=== PATIENT | female | born 1990 | race Caucasian/White ===

== ENCOUNTER 2023-11-23 11:04 | Inpatient (IN) ==
[2023-11-23 11:49] LABS: Basophils # (auto) 0.02 K/uL (0.00-0.20); Basophils % (auto) 0.2 %; Hematocrit (blood only) 39.7 % (37.0-47.0); Hemoglobin 12.8 g/dl (12.0-16.0); Immature Granulocytes # (auto) 0.04 K/uL (0.01-0.20); Immature Granulocytes % (auto) 0.4 %; Lymphocytes # (auto) 0.54 K/uL (1.20-3.40); Lymphocytes % (auto) 6.1 %; Mean Corpuscular Hemoglobin 27.7 pg (25.0-34.0); Mean Corpuscular Hgb Conc 32.2 g/dL (32.0-36.0); Mean Corpuscular Volume 85.9 fL (80.0-100.0); Mean Platelet Volume 11.1 fL (9.4-12.4); Monocytes # (auto) 0.71 K/uL (0.11-0.59); Neutrophils % (auto) 85.3 %; Platelet Count 197 K/uL (130-400); RDW Coefficient of Variation 13.2 % (11.5-14.5); RDW Standard Deviation 41.3 fL (36.4-46.3); Red Blood Count 4.62 M/uL (4.20-5.40); White Blood Count 8.91 K/ul (4.8-10.8)
[2023-11-23 12:00] LABS: Alanine Aminotransferase 12 U/L (7-52); Albumin Globulin Ratio 1.2 (0.9-2); Albumin Level 3.7 gm/dl (3.4-5.0); Alkaline Phosphatase 106 U/L (34-104); Anion Gap 6 (3-11); Aspartate Aminotransferase 12 U/L (13-39); BUN Creatinine Ratio 13.3 (10-20); Bilirubin,Total 1.9 mg/dl (0.2-1.0); Blood Urea Nitrogen 10 mg/dl (6-23); Calcium 9.2 mg/dl (8.6-10.3); Carbon Dioxide 25 mmol/L (21-32); Chloride 105 mmol/L (98-107); Est GFR (African American) 123.1 ml/min; Est GFR (Non-African American) 106.2 ml/min; Globulin 3.2 gm/dl (2.5-4.0); Glucose 107 mg/dl (70-99(Fasting)); Potassium 3.3 mmol/L (3.5-5.1); Sodium 136 mmol/L (136-145); Total Protein 6.9 gm/dl (6.0-8.3)
--- NOTE | 2023-11-23 12:05 | Emergency Department Note ---
Impression & Plan Bacteremia, Pyelonephritis, Lyme disease ED Provider Note NAME: LEODAN IQBAL AGE: 33 SEX: F : 1990 ARRIVES VIA: Walk-In INFORMANT: Patient, ED PROVIDER(S): Veda Longoria MD CHIEF COMPLAINT: Positive blood cultures HPI: This is a 33-year-old female presenting for fever, back pain, positive blood cultures. Patient was seen yesterday with complaints of fever, back pain and nausea. Patient had diagnosis of pyelonephritis and Lyme. Patient was called back today for positive blood cultures growing E. coli. Patient notes worsening of her symptoms, more migraine type symptoms, worsening fatigue. Continue fever at home as well. Last took antibiotics yesterday morning and then 1 dose in the afternoon yesterday. ROS: See above HPI for pertinent positives & negatives. A total of 10 systems reviewed and were otherwise negative. PHYSICAL EXAMINATION: General: resting comfortably in no acute distress Head: Normocephalic and atraumatic Eyes: Normal inspection, extraocular muscles intact Ear, nose, throat: Normal external exam Neck: Normal range of motion Respiratory: lungs clear to auscultation bilaterally Cardiovascular: Regular rate/rhythm, no murmur GI: soft, nontender, no guarding or rebound Extremities: nontender, moves all extremities Neuro: The patient awake and alert, appropriately conversive, no focal deficits, symmetric faces Skin: Warm, dry, and intact MEDICAL DECISION MAKING: This is 33-year-old female presenting for fever and back pain with positive blood cultures. Will initiate ceftriaxone due to gram negative bacilli in blood. -Overall patient is somewhat tachycardic but not hypotensive. Her blood work is reviewed showing a leukocytosis, down from yesterday. Otherwise stable electrolytes. -Patient still has signs of UTI on urinalysis. -Will admit for further workup of her bacteremia, UTI/pyonephritis -Patient care discussed with Dr. Maier. Differential diagnosis: Sepsis, bacteremia, pyonephritis, ER treatment provided: See below Diagnostics interpreted by me: ECG: None Cardiac Monitoring: An order was placed for continuous cardiac monitoring. The monitor shows a rate of 102 with sinus rhythm. Laboratory studies: As stated above and show below. Imaging studies: See below. Past Med/Surg History Problem List (Updated 11/23/23 @ 19:30 by Veda Longoria MD) Hypokalemia Lyme disease (Acute) Bacteremia (Acute) Acute Lyme disease (Acute) Pyelonephritis (Acute) Loss of eyelashes Encounter for anatomic survey Encounter for supervision of normal in multigravida Medical History Varicella vaccination Insertion of Nexplanon History of abdominal pain Encounter for initial prescription of contraceptives Encounter for gynecological examination Migraine with aura Surgical History H/O adenoidectomy Family History Grandfather (Maternal) Colorectal cancer Heart disease Sister Endometriosis Denies family history of Ovarian cancer Prostate cancer Breast cancer Uterine cancer Social History Smoking Status: Never smoker Tobacco Type: E-cigarettes / Vaping Second Hand Exposure: No; Do You Dip or Chew Tobacco: No; Hx Alcohol Use: Yes Hx Substance Use: No Preferred Language: Greek Communication Ability: Effective Visual Impairment: No Limitations Hearing Ability: Normal Tube Backer Required: No Beliefs That Will Affect Care: None marital status: Single marital status details: Shola (28) [phone] Current Living Situation: Other Current Living Situation Comment: roommate current occupational status: employed current occupation: [employer] Other Information That Helps Us Care for You: No Feels Safe at Home: Yes Assistive Devices: Glasses Allergies Allergies Allergy/AdvReac Type Severity Reaction Status Date / Time hydrocodone [From Vicodin] AdvReac Intermediate Vomiting Verified 11/23/23 13:18 Home Meds Home Medications Medication Instructions Recorded Confirmed etonogestrel 68 mg subdermal 68 mg subdermal DIRECTED 11/22/23 11/23/23 implant (Nexplanon) doxycycline hyclate 100 mg capsule 0 mg PO BID 11/23/23 11/23/23 Previous Rx's Medication Instructions Recorded cefdinir 300 mg capsule 300 mg PO BID 10 days #20 caps 11/22/23 oxycodone 5 mg tablet 5 mg PO Q4H PRN pain #15 tabs 11/22/23 Results & Data (ED) Vital Signs Vital Signs - 24 hr 11/23/23 11:17 11/23/23 11:44 Temperature 37.3 C Temperature Source Temporal Artery Scan Pulse Rate 102 H 93 H Respiratory Rate 18 Respiratory Effort / Characteristics Non-Labored Respiratory Depth Normal Respiratory Pattern Regular Blood Pressure 102/70 Blood Pressure Mean 80 Pulse Oximetry 100 Oxygen Delivery Method Room Air Sepsis Recent Fever Within 48 Hours No Sepsis New/Unexplained Change in Mental Status N/A Sepsis Action Taken by Nursing No Action Required Laboratory Data 11/23/23 11:11/23/23 11:26 Lab Results 11/23/23 11/23/23 Range/Units 11: 12:08 WBC 8.91 (4.8-10.8) K/ul RBC 4.62 (4.20-5.40) M/uL Hgb 12.8 (12.0-16.0) g/dl Hct 39.7 (37.0-47.0) % MCV 85.9 (80.0-100.0) fL MCH 27.7 (25.0-34.0) pg MCHC 32.2 (32.0-36.0) g/dL RDW Std Deviation 41.3 (36.4-46.3) fL RDW Coeff of Porfirio 13.2 (11.5-14.5) % Plt Count 197 (130-400) K/uL MPV 11.1 (9.4-12.4) fL Immature Gran % (Auto) 0.4 % Neut % (Auto) 85.3 % Lymph % (Auto) 6.1 % Carlisle % (Auto) 8.0 % Eos % (Auto) 0.0 % Baso % (Auto) 0.2 % Neut # (Auto) 7.60 H (1.40-6.50) K/uL Lymph # (Auto) 0.54 L (1.20-3.40) K/uL Carlisle # (Auto) 0.71 H (0.11-0.59) K/uL Eos # (Auto) 0.00 (0.00-0.50) K/uL Baso # (Auto) 0.02 (0.00-0.20) K/uL Immature Gran # (Auto) 0.04 (0.01-0.20) K/uL Sodium 136 (136-145) mmol/L Potassium 3.3 L (3.5-5.1) mmol/L Chloride 105 (98-107) mmol/L Carbon Dioxide 25 (21-32) mmol/L Anion Gap 6 (3-11) BUN 10 (6-23) mg/dl Creatinine 0.75 (0.6-1.2) mg/dl Est Cr Clr Drug Dosing Not Reportable Est GFR ( Amer) 123.1 ml/min Est GFR (Non-Af Amer) 106.2 ml/min BUN/Creatinine Ratio 13.3 (10-20) Glucose 107 H (70-99(Fasting)) mg/dl Calcium 9.2 (8.6-10.3) mg/dl Magnesium 1.8 (1.7-2.4) mg/dl Total Bilirubin 1.9 H (0.2-1.0) mg/dl AST 12 L (13-39) U/L ALT 12 (7-52) U/L Alkaline Phosphatase 106 H (34-104) U/L Total Protein 6.9 (6.0-8.3) gm/dl Albumin 3.7 (3.4-5.0) gm/dl Globulin 3.2 (2.5-4.0) gm/dl Albumin/Globulin Ratio 1.2 (0.9-2) Urine Color Dark Yellow Urine Appearance Clear (Clear) Urine pH 6.5 (4.5-7.5) Ur Specific Clyde 1.018 (1.000-1.030) Urine Protein 2+ H (Negative) Urine Glucose (UA) Negative (Negative) Urine Ketones 2+ H (Negative) Urine Blood 1+ H (Negative) Urine Nitrite Negative (Negative) Urine Bilirubin Negative (Negative) Urine Urobilinogen Positive H (Negative) Ur Leukocyte Esterase 1+ H (Negative) Urine WBC (Auto) 21-50 H (0-5) /hpf Urine RBC (Auto) 11-20 H (0-2) /hpf U Hyaline Cast (Auto) 0-2 (0-2) /lpf U Epithel Cells (Auto) 3-5 H (0-2) /hpf Urine Bacteria (Auto) None Seen (None Seen) Administered Medications Sodium Chloride (Nss) 1,000 mls @ 125 mls/hr IV .Q8H FRANKLIN Stop: 12/23/23 17:07 Last Admin: 11/23/23 18:02 Dose: 125 mls/hr Documented By: CMV Discontinued Medications Ceftriaxone Sodium (Rocephin) 2,000 mg in 50 mls @ 100 mls/hr IV NOW STA Stop: 11/23/23 12:27 Last Infusion: 11/23/23 12:49 Dose: Infused Documented By: Admin: 11/23/23 12:19 Dose: 100 mls/hr Documented By: CARMEN Acetaminophen (Ofirmev) 1,000 mg in 100 mls @ 400 mls/hr IV NOW STA Stop: 11/23/23 12:13 Last Infusion: 11/23/23 12:36 Dose: Infused Documented By: Admin: 11/23/23 12:21 Dose: 400 mls/hr Documented By: CARMEN Sodium Chloride (Nss) 1,000 mls @ 999 mls/hr IV .Q1H1M ONE Stop: 11/23/23 12:59 Last Infusion: 11/23/23 13:23 Dose: Infused Documented By: Admin: 11/23/23 12:18 Dose: 999 mls/hr Documented By: CARMEN Ioversol (Optiray 320 100ml) 94 ml IV ONCE ONE Stop: 11/23/23 14:28 Last Admin: 11/23/23 14:27 Dose: 94 ml Documented By: NICK Ketorolac Tromethamine (Ketorolac 30 Mg/Ml Vial) 30 mg IV NOW STA Stop: 11/23/23 14:13 Last Admin: 11/23/23 14:37 Dose: 30 mg Documented By: CARMEN Potassium Chloride (Potassium Chloride Crtab 20 Meq Tabcr) 40 meq PO NOW STA Stop: 11/23/23 17:09 Last Admin: 11/23/23 18:02 Dose: 40 meq Documented By: TERESO Promethazine HCl (Promethazine 12.5 Mg/50.5 Ml Nss) Confirm Administered Dose 12.5 mg IV .STK-MED ONE Stop: 11/23/23 14:34 Last Admin: 11/23/23 14:41 Dose: 12.5 mg Documented By: CARMEN Discharge Plan Visit Data Chief Complaint: Referred by Doctor Stated Complaint: BACTERIAL INFECTION ED Provider: Veda Longoria Discharge Problem: Bacteremia, Pyelonephritis, Lyme disease Patient Disposition: Admitted As Inpatient Discharge Instructions Interventions: ED Discharge Assessment Last Done: 11/23/23 17:53
[2023-11-23] MEDS: SODIUM CHLORIDE 0.9% 1,000 ML IV ONE (12:18)
[2023-11-23] MEDS: cefTRIAXone SODIUM 2,000 MG/50 ML BAG IV STA (12:19)
[2023-11-23] MEDS: ACETAMINOPHEN 1,000 MG/100 ML VIAL IV STA (12:21)
[2023-11-23 12:24] LABS: Appearance Urine Clear (Clear); Bacteria Urine Automated None Seen (None Seen); Bilirubin Urine Negative (Negative); Blood Urine 1+ (Negative); Cast Urine Automated 0-2 /lpf (0-2); Color Urine Dark Yellow; Glucose Urine UA Negative (Negative); Ketones Urine 2+ (Negative); Leukocyte Esterase Urine 1+ (Negative); Nitrite Urine Negative (Negative); Protein Urine 2+ (Negative); Specific Gravity Urine 1.018 (1.000-1.030); Urobilinogen Urine Positive (Negative); WBC Urine Automated 21-50 /hpf (0-5); pH Urine 6.5 (4.5-7.5)
--- NOTE | 2023-11-23 13:04 | History & Physical Report ---
Date of Service November 23, 2023 Assessment & Plan (1) Pyelonephritis: (2) Bacteremia: (3) Lyme disease: (4) Hypokalemia: Plan: 33-year-old female with history of GERD, irritable bowel syndrome, migraine, presenting with positive blood cultures. Pyelonephritis Right renal abscess Bacteremia, E. coli Does not meet criteria for sepsis at this point Urine culture November 22, 2023: Gram-negative bacilli, E. coli per serology testing, no resistant genes Blood cultures November 22, 2023: Negative bacilli IV ceftriaxone 2 g daily IV NSS 125 cc/h As needed Tylenol, tramadol, oxycodone for pain Repeat blood cultures ordered for tomorrow CT abdomen and pelvis with contrast ordered to rule out kidney stone, abscess: Positive small renal abscess on the right Will consult urology and ID Equivocal Lyme disease results Western blot Lyme ordered Anaplasmosis DNA pending Babesia DNA pending On IV ceftriaxone Hypokalemia Potassium 3.1, magnesium pending Potassium 40 mg ordered Monitor and replete accordingly History of GERD, IBS, migraine Not on medications DVT prophylaxis Lovenox subcutaneous daily [facility] [place] [facility] Anticipate discharge to home medically stable History of Present Illness Chief Complaint: Positive blood cultures Primary Care Provider: Santiago Witt MD 33-year-old female with history of GERD, irritable bowel syndrome, migraine, presenting with positive blood cultures. Patient reports having the following symptoms over the weekend: Fever of 102/chills, back pain, headache, nausea, polyuria, muscle aches. She presented to the ER yesterday and was diagnosed to have possible pyelonephritis and Lyme disease. She was discharged on p.o. cefdinir and p.o. doxycycline. Patient was called back to the ER today as her urine culture and blood cultures is positive for gram-negative bacilli, preliminary serologic testing reveals E. coli, no resistant genes. At the ER, patient received afebrile, slightly tachycardic at low 100s, WBC improved from 13, current 8.9. She was started IV ceftriaxone 2 g at the ED. On exam, patient seen resting in bed, sleeping but easily awakened. States she is having severe frontal headache reminiscent of her migraine att acks. Still having some back pain, dysuria, no hematuria. No other symptoms Allergies Allergy/AdvReac Type Severity Reaction Status Date / Time hydrocodone [From Vicodin] AdvReac Intermediate Vomiting Verified 11/23/23 13:18 Home Medications Medication Instructions Recorded Confirmed Type cefdinir 300 mg capsule 300 mg PO BID 10 days #20 caps 11/22/23 11/23/23 Rx etonogestrel 68 mg subdermal 68 mg subdermal DIRECTED 11/22/23 11/23/23 History implant (Nexplanon) oxycodone 5 mg tablet 5 mg PO Q4H PRN pain #15 tabs 11/22/23 11/23/23 Rx doxycycline hyclate 100 mg capsule 0 mg PO BID 11/23/23 11/23/23 History Past Med/Surg History Problem List (Updated 11/23/23 @ 19:30 by Veda Longoria MD) Hypokalemia Lyme disease (Acute) Bacteremia (Acute) Acute Lyme disease (Acute) Pyelonephritis (Acute) Loss of eyelashes Encounter for anatomic survey Encounter for supervision of normal in multigravida Medical History Varicella vaccination Insertion of Nexplanon History of abdominal pain Encounter for initial prescription of contraceptives Encounter for gynecological examination Migraine with aura Surgical History H/O adenoidectomy Family History Grandfather (Maternal) Colorectal cancer Heart disease Sister Endometriosis Denies family history of Ovarian cancer Prostate cancer Breast cancer Uterine cancer Social History Smoking Status: Never smoker Tobacco Type: E-cigarettes / Vaping Second Hand Exposure: No; Do You Dip or Chew Tobacco: No; Hx Alcohol Use: Yes Hx Substance Use: No Preferred Language: Italian Communication Ability: Effective Visual Impairment: No Limitations Hearing Ability: Normal House Cleaner Required: No Beliefs That Will Affect Care: None marital status: Single marital status details: Shola (28) [phone] Current Living Situation: Other Current Living Situation Comment: roommate 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 occupational status: 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 Other Information That Helps Us Care for You: No Feels Safe at Home: Yes Assistive Devices: Glasses Review of Systems Review of Systems: all noted and negative except for above Physical Exam Physical Exam: General- oriented x 3, not in distress, speaks in sentences with no effort or accessory muscle use Head- atraumatic Eyes- PERRL, EOMI, anicteric ENT- oropharynx clear Neck- supple, no JVD, no adenopathy, no thyromegaly; carotids +2/2, no bruits appreciated Lungs- clear to auscultation bilaterally, no rales/wheezes Heart- normal rate, regular rhythm; no murmur, no gallop, no rub appreciated Abdomen- normal bowel sounds, nondistended, soft, nontender, no masses or hepatosplenomegaly Positive mild CVA tenderness Extremities- no pretibial edema, no calf tenderness; peripheral pulses intact Neuro- alert, oriented x 3; CN 2-12 grossly intact; motor 5/5 bilaterally;sensation 100% on all extremities; no other gross focal neurologic deficits Skin- warm & dry Results & Data Results & Data Vital Signs (Past 12 Hours) Vital Signs Temp Pulse Resp BP Pulse Ox O2 Del Method 11/23/23 11:44 93 H 11/23/23 11:17 37.3 C 102 H 18 102/70 100 Room Air all noted and reviewed including below
[2023-11-23] MEDS: OPTIRAY 320 100ml IV ONE (14:27)
[2023-11-23] MEDS ORDERED: PROMETHAZINE HCL 12.5 MG in SODIUM CHLORIDE 0.9% 50 ML IV PRN (14:29)
[2023-11-23] MEDS: KETOROLAC 30 MG/ML VIAL IV STA (14:37)
[2023-11-23] MEDS: PROMETHAZINE 12.5 MG/50.5 ML NSS IV ONE (14:41)
--- NOTE | 2023-11-23 15:05 | CT Scan Report ---
CT abd pelvis IV con only CLINICAL HISTORY: pyelonephritis, r/o absces vs stone TECHNIQUE: Helical axial images of the abdomen and pelvis were obtained and displayed. Automated dose lowering techniques and/or adjustment according to patient size were utilized for this exam. This e xam was performed with intravenous contrast. CT DOSE: 553.08 mGy.cm COMPARISON: Comparison is made to renal ultrasound 11/22/2023 FINDINGS: Lower chest: No acute abnormality. Liver: Unremarkable. No focal lesions are seen. Gallbladder and biliary tree: There is mild pericholecystic fluid, likely reactive. No intra- or extr ahepatic biliary ductal dilation. Pancreas: Unremarkable, no focal lesions. Spleen: Unremarkable. Adrenals: Unremarkable. Kidneys and ureters: Wedge-shaped hypodensities are seen throughout the right kidney compatible with pyelonephritis. A focal hypoenhancing wedge-shaped density in the left superior pole likely also repr esents pyelonephritis. There are subcentimeter hypodensities in the right kidney inferior pole which may represent developing abscess. Thickening and enhancement is seen in the right greater than left u reter. Bladder: Bladder is underdistended but thickened in appearance. Reproductive organs: Unremarkable. Bowel: Unremarkable. Lymph nodes Retroperitoneal: Unremarkable. Pelvic: Unremarkable. Mesenteric: Unremarkable. Peritoneum: Normal. Vessels: Unremarkable. Abdominal wall: Unremarkable. Bones: Unremarkable. IMPRESSION: Findings are compatible with pyelonephritis with possible developing tiny renal abscesses in the righ t kidney inferior pole. Surrounding fat stranding is seen in pericholecystic fluid is likely reactive . No nonobstructive nephrolithiasis is seen. ACT 112: Negative or not required by law. Electronically signed by: Domenic Zhou M.D. 11/23/2023 3:03 PM
[2023-11-23 17:29] LABS: Magnesium 1.8 mg/dl (1.7-2.4)
[2023-11-23] MEDS: POTASSIUM CHLORIDE CRTAB 20 MEQ TABCR PO STA (18:02)
[2023-11-23] MEDS: SODIUM CHLORIDE 0.9% 1,000 ML IV SCH (18:02)
[2023-11-23] MEDS: ACETAMINOPHEN 325 MG TAB PO PRN (19:46)
--- NOTE | 2023-11-23 22:25 | Urology Consultation ---
<Statement entered by Boogie Tirado MD - 11/24/23 07:37> I have discussed Ms. Aldana's case with Yuniel Plunkett PA-C and agree with the above documentation. Agree with broad-spectrum antibiotics, narrowing coverage as culture data becomes available. If she does not improve or worsens clinically, consider reimaging to evaluate for formalization of any renal abscess which could subsequently require percutaneous drainage. -Boogie Tirado MD. Date of Consultation November 23, 2023 Assessment & Plan (1) Pyelonephritis: The patient has been admitted on the hospital service. Concerning the patient's treatment of Lyme disease this will be deferred to the primary service From a urologic perspective we recommend the following: Patient has been initiated on antibiotics in form of Rocephin. Appropriate cultures have been sent. Would recommend continuing antibiotics and tailoring them based on culture results as well as her clinical response Recommend hydration with IV fluids Recommend following serial labs It appears on imaging that the patient may have the development of a renal abscess. If the patient fails to respond in a favorable manner to the above noted treatment plan (continuing fevers, worsening flank pain/CVA tenderness, development of leukocytosis) consideration should be given to reimaging the patient's kidney to see if there is worsening of possible abscess. If there is noted to be worsening of patient's possible renal abscess measures to address the abscess will need to be undertaken and will be dependent on findings on repeat imaging At the present time the patient is normotensive without leukocytosis. She does have a slight tachycardia with a heart rate in the 90s but she is nontoxic- appearing. Additional recommendations be forthcoming based on her clinical course as it unfolds History of Present Illness Reason for Consultation: Pyelonephritis with developing kidney abscess Attending Physician: Elias Maier MD History of Present Illness This is a 33-year-old female who has had approximately 3 days of fevers, chills, and back pain. The patient also has had some nausea and vomiting along with some headache and myalgias. In addition, she reports generalized abdominal pain. She specifically denies any hematuria or dysuria. She denies any prior history of kidney stones and notes that she does not frequently get urinary tract infections. Patient presented to the emergency department on 11/22/2023 where she was diagnosed with pyelonephritis as well as Lyme disease. She was discharged on oral cefdinir and oral doxycycline. It is noteworthy to mention that on that date the patient did have labs were white blood cell count was elevated at 13.5. Hemoglobin and hematocrit as well as the platelet count were normal. Chemistry profile showed sodium and potassium as well as the BUN and creatinine were normal. A renal ultrasound during this emergency department visit showed no hydronephrosis. There was a 5 mm echogenic focus in the right kidney without shadowingjust interpreting radiologist could not exclude a kidney stone on the study.The patient did have a urine culture sent that day that has thus far grown gram-negative bacilli. She has also had 1 out of 2 blood cultures grow also gram-negative bacilli. Because of patient's culture results she was instructed to come to the emergency department for intravenous antibiotics. Since admission to the hospital patient has had labs and imaging which I independent reviewed. A CT scan of the abdomen pelvis showed the patient had a wedge-shaped hypodensities seen throughout the right kidney which was felt to be compatible with pyelonephritis. She also had a focal hypoenhancing wedge-shaped density in the left superior pole that was felt to represent pyelonephritis. There are also some subcentimeter hypodensities in the right kidney along the inferior pole which were felt to potentially represent developing abscesses. No kidney stones were noted on the study. The bladder did appear thickened in appearance. Labs included CBC her white blood cell count, hemoglobin, hematocrit, and platelet count were normal. Chemistry profile showed sodium was normal. Her potassium was 3.3. BUN and creatinine were both within the normal range. Urinalysis did show 1+ leukocyte Estrace and was negative for nitrites. There is pyuria with 21-50 white blood cells per high-power field and no bacteria. At the time of my interview the patient was resting comfortably in bed and she was no distress. Allergies Allergy/AdvReac Type Severity Reaction Status Date / Time hydrocodone [From Vicodin] AdvReac Intermediate Vomiting Verified 11/23/23 13:18 Home Medications Medication Instructions Recorded Confirmed Type cefdinir 300 mg capsule 300 mg PO BID 10 days #20 caps 11/22/23 11/23/23 Rx etonogestrel 68 mg subdermal 68 mg subdermal DIRECTED 11/22/23 11/23/23 History implant (Nexplanon) oxycodone 5 mg tablet 5 mg PO Q4H PRN pain #15 tabs 11/22/23 11/23/23 Rx doxycycline hyclate 100 mg capsule 0 mg PO BID 11/23/23 11/23/23 History Patient History Medical History Varicella vaccination Insertion of Nexplanon History of abdominal pain Encounter for initial prescription of contraceptives Encounter for gynecological examination Migraine with aura Surgical History H/O adenoidectomy Family History Grandfather (Maternal) Colorectal cancer Heart disease Sister Endometriosis Denies family history of Ovarian cancer Prostate cancer Breast cancer Uterine cancer Social History Smoking Status: Never smoker Tobacco Type: E-cigarettes / Vaping Second Hand Exposure: No; Do You Dip or Chew Tobacco: No; Hx Alcohol Use: Yes Hx Substance Use: No Preferred Language: Czech Communication Ability: Effective Visual Impairment: No Limitations Hearing Ability: Normal Dairy Farm Supervisor Required: No Beliefs That Will Affect Care: None marital status: Single marital status details: Shola (28) [phone] Current Living Situation: Other Current Living Situation Comment: roommate current occupational status: employed current occupation: [employer] Other Information That Helps Us Care for You: No Feels Safe at Home: Yes Assistive Devices: Glasses Review of Systems Review of Systems: All systems reviewed & are unremarkable except as noted in HPI & below Physical Exam Constitutional: WD/WN, vitals as above Eyes: Wears glasses ENMT: Ears: no hearing impairment and no external ear abnormality Mouth: no oropharynx abnormality Neck: trachea midline Respiratory: normal respiratory effort; no respiratory distress and no labored breathing Cardiovascular: Rate/Rhythm: regular rate and regular rhythm Gastrointestinal (Abdomen): Abdomen is soft, nonrigid, nondistended. There is some generalized pain with palpation in the lower abdomen. Musculoskeletal: No calf tenderness, feet are warm and well-perfused. Pedal pulses are palpable Skin: no rashes Neurologic: moves all extremities Psychiatric: A+Ox3, euthymic affect Genitourinary: CVA tenderness noted with percussion on the right, not on the left Results & Data Vital Signs (Past 12 Hours) Vital Signs Temp Pulse Pulse Pulse Resp BP BP 11/23/23 19:45 38.7 C H 93 H 18 11/23/23 17:36 36.9 C 74 16 11/23/23 15:53 85 22 111/73 11/23/23 11:44 93 H 11/23/23 11:17 37.3 C 102 H 18 102/70 BP Pulse Ox O2 Del Method 11/23/23 19:45 112/78 96 Room Air 11/23/23 17:36 107/73 97 Room Air 11/23/23 15:53 96 Room Air 11/23/23 11:44 11/23/23 11:17 100 Room Air PG Care Time/CCT Total # of Minutes Spent Total Time Spent with Patient: Total time spent is greater than 50% in coordination of care (as documented) at patient's floor/unit and/or counseling patient: Coding Level of Care Code 69952 IN/OBS CONSULT LVL 5,80M Diagnoses Pyelonephritis N12
[2023-11-23] MEDS: ENOXAPARIN INJ 40 MG/0.4 ML SYR SQ SCH (22:27)
[2023-11-24 06:37] LABS: Basophils # (auto) 0.02 K/uL (0.00-0.20); Basophils % (auto) 0.4 %; Eosinophils # (auto) 0.01 K/uL (0.00-0.50); Eosinophils % (auto) 0.2 %; Hematocrit (blood only) 33.9 % (37.0-47.0); Hemoglobin 10.8 g/dl (12.0-16.0); Immature Granulocytes # (auto) 0.03 K/uL (0.01-0.20); Immature Granulocytes % (auto) 0.5 %; Lymphocytes # (auto) 0.67 K/uL (1.20-3.40); Lymphocytes % (auto) 11.8 %; Mean Corpuscular Hemoglobin 27.5 pg (25.0-34.0); Mean Corpuscular Hgb Conc 31.9 g/dL (32.0-36.0); Mean Corpuscular Volume 86.3 fL (80.0-100.0); Mean Platelet Volume 11.5 fL (9.4-12.4); Monocytes # (auto) 0.54 K/uL (0.11-0.59); Monocytes % (auto) 9.5 %; Neutrophils % (auto) 77.6 %; Platelet Count 174 K/uL (130-400); RDW Coefficient of Variation 13.4 % (11.5-14.5); Red Blood Count 3.93 M/uL (4.20-5.40); White Blood Count 5.67 K/ul (4.8-10.8)
[2023-11-24 07:13] LABS: Calcium 8.4 mg/dl (8.6-10.3); Creatinine Clr Calc Pharmacy 101.8 ml/min; Est GFR (African American) 134.4 ml/min; Magnesium 1.6 mg/dl (1.7-2.4); Potassium 3.6 mmol/L (3.5-5.1)
[2023-11-24] MEDS: traMADol HCL 50 MG TABLET PO PRN (07:28)
[2023-11-24] MEDS: PROMETHAZINE HCL 12.5 MG in SODIUM CHLORIDE 0.9% 50 ML IV PRN (08:07)
--- NOTE | 2023-11-24 08:59 | Urology Progress Note ---
Date of Service November 24, 2023 Assessment & Plan (1) Pyelonephritis: (2) Bacteremia: Plan: 33 yo/F admitted for pyelonephritis and E. coli bacteremia. CT imaging with findings consistent of bilateral pyelonephritis; subcentimeter hypodensities in the right kidney inferior pole which may represent developing abscess. Afebrile overnight, hemodynamically stable Labs reviewedcreatinine 0.69, no leukocytosis Urine and blood cultures 11/21 with E. coli Repeat blood cultures 11/22 and 11/23 are pending Continue broad spectrum antibiotics, narrow per sensitivity data when available ID consult pending Can repeat imaging if she clinically deteriorates to reassess for abscess Continue supportive care Can arrange outpatient follow-up with PCP or urology will sign off, please contact our service with any additional questions or concerns Admission and Anticipated Discharge Date Admission Date: November 23, 2023 Subjective Patient seen and examined at bedside this morning She is resting in bed, no apparent distress Denies fevers overnight Reports mild flank pain, right greater than left Voiding spontaneously Review of Systems Constitutional: as per Subjective / HPI Genitourinary: as per Subjective / HPI Physical Exam Constitutional: well developed and well nourished; no acute distress Respiratory: normal respiratory effort; no respiratory distress and no labored breathing Gastrointestinal (Abdomen): Inspection/Auscultation: abdomen normal to inspection Musculoskeletal: Head/Neck/Chest: normocephalic Neurologic: moves all extremities and awake Psychiatric: Orientation: alert and oriented x 3 Results & Data Vital Signs (Past 12 Hours) Vital Signs Temp Pulse Resp BP Pulse Ox O2 Del Method 11/24/23 07:16 36.7 C 85 16 105/68 95 Room Air 11/23/23 22:36 37.1 C PG Care Time/CCT Total # of Minutes Spent Total Time Spent with Patient: Total time spent is greater than 50% in coordination of care (as documented) at patient's floor/unit and/or counseling patient: Coding Level of Care Code 30741 SUB INP/OBS CARE 06/04MIN Diagnoses Pyelonephritis N12 Bacteremia R78.81
[2023-11-24] MEDS: cefTRIAXone SODIUM 2,000 MG in DEXTROSE 5% 50 ML IV SCH (12:47)
--- NOTE | 2023-11-24 13:17 | Hospitalist Progress Note ---
Date of Service November 24, 2023 Assessment & Plan (1) Pyelonephritis: (2) Bacteremia: (3) Lyme disease: (4) Renal abscess, right: (5) Electrolyte abnormality: (6) Antibiotic-associated diarrhea: Plan Patient still moderately ill with significant flank pain. Continue antibiotics/Rocephin for both E. coli bacteremia and Lyme disease C. difficile is negative, trial of Imodium and probiotic for her antibiotic associated diarrhea Added ibuprofen as needed for her flank pain in addition to Tylenol and tramadol Replace magnesium Urology note reviewed Anticipate if surveillance cultures remain no growth could consider transitioning to oral antibiotics and outpatient follow-up. Mother on FaceTime while at the bedside with patient. Admission and Anticipated Discharge Date Admission Date: November 23, 2023 Subjective Patient still with fair amount of flank pain but medication seems to help. Continues to have fair amounts of loose stools Physical Exam Physical Exam: Constitutional: Alert HEENT: Mucous membranes moist. Lungs: Clear to auscultation, decreased, no wheezes rales or rhonchi CV: S1-S2, regular Abdomen: Soft, right flank pain nondistended Extremities: No significant edema Neuro: No focal deficits Psych: Cooperative, normal mood Results & Data Results & Data Vital Signs (Past 12 Hours) Vital Signs Temp Pulse Resp BP Pulse Ox O2 Del Method 11/24/23 07:16 36.7 C 85 16 105/68 95 Room Air Diagnostic Findings Reviewed imaging, laboratory and diagnostic studies. Pertinent findings as below. WBCs 5.6 Surveillance cultures no growth to date C. difficile negative Magnesium 1.6
[2023-11-24] MEDS: POTASSIUM CHLORIDE CRTAB 20 MEQ TABCR PO ONE (13:26)
[2023-11-24] MEDS: LOPERAMIDE HCL 2 MG CAP PO PRN (13:26)
[2023-11-24] MEDS: MAGNESIUM SULFATE / D5W 1 GM/100 ML BAG IV SCH (13:30)
--- NOTE | 2023-11-24 15:53 | Infectious Disease Consult ---
Date of Service November 24, 2023 Telehealth Information I performed this visit using a real-time telehealth connection between my location and the patients location ([facility]). After connecting through interactive tele-video, patient was identified by name and date of and/or wristband check.Patient (or authorized healthcare customer field representative) was informed that this was a telemedicine visit and it was being conducted confidentially over secure lines. My office door was closed and no one else was present in the room with me.Patient (or authorized healthcare customer field representative) provided consent to proceed with the visit, expressed an understanding of privacy and security of the telemedicine visit, and gave permission to have a hospital customer field representative in the room in order to assist with the visit and to conduct portions of the visit, as needed. I informed the patient (or authorized healthcare customer field representative) that I reviewed their record and presented the opportunity for them to ask any questions regarding the visit today. The patient agreed to participate. Assessment & Plan (1) Renal abscess, right: Plan: Recommend ciprofloxacin for 2-3 weeks with re-imaging to determine resolution of the renal abscess (2) Bacteremia: Plan: Recommend treating with ciprofloxacin if no CI (3) Pyelonephritis: Plan: Recommend treating with ciprofloxacin for a total of 14 -21 days (4) E. coli bacteremia: Plan: Recommend treating for 2-3 weeks with ciprofloxacin Plan Recommend switching to ciprofloxacin for 2-3 weeks with re-imaging to determine resolution of her renal abscess, if no contra-indications such as QT prolongation or AAA.Thank you for allowing us to participate in the care of this patient ID will sign off History of Present Illness History of Present Illness 33 y/o F PMHx of GERD, irritable bowel syndrome, migraine, presented with positive blood cultures with E Coli .Imaging revealed renal abscess and pyelonephritis and she is currently on ceftriaxone .No drainage was done Allergies Allergy/AdvReac Type Severity Reaction Status Date / Time hydrocodone [From Vicodin] AdvReac Intermediate Vomiting Verified 11/23/23 13:18 Home Medications Medication Instructions Recorded Confirmed Type cefdinir 300 mg capsule 300 mg PO BID 10 days #20 caps 11/22/23 11/23/23 Rx etonogestrel 68 mg subdermal 68 mg subdermal DIRECTED 11/22/23 11/23/23 History implant (Nexplanon) oxycodone 5 mg tablet 5 mg PO Q4H PRN pain #15 tabs 11/22/23 11/23/23 Rx doxycycline hyclate 100 mg capsule 0 mg PO BID 11/23/23 11/23/23 History Patient History Medical History Varicella vaccination Insertion of Nexplanon History of abdominal pain Encounter for initial prescription of contraceptives Encounter for gynecological examination Migraine with aura Surgical History H/O adenoidectomy Family History Grandfather (Maternal) Colorectal cancer Heart disease Sister Endometriosis Denies family history of Ovarian cancer Prostate cancer Breast cancer Uterine cancer Social History Smoking Status: Never smoker Tobacco Type: E-cigarettes / Vaping Second Hand Exposure: No; Do You Dip or Chew Tobacco: No; Hx Alcohol Use: Yes Hx Substance Use: No Preferred Language: Vincentian Communication Ability: Effective Visual Impairment: No Limitations Hearing Ability: Normal Oral Health Therapist Required: No Beliefs That Will Affect Care: None marital status: Single marital status details: Shola (28) [phone] Current Living Situation: Other Current Living Situation Comment: roommate current occupational status: employed current occupation: [employer] Other Information That Helps Us Care for You: No Feels Safe at Home: Yes Assistive Devices: None Review of Systems denies abdominal pain Physical Exam Patient awake alert oriented Results & Data Vital Signs (Past 12 Hours) Vital Signs Temp Pulse Resp BP Pulse Ox O2 Del Method 11/24/23 13:55 37.8 C H 91 H 16 112/76 95 Room Air 11/24/23 07:16 36.7 C 85 16 105/68 95 Room Air Laboratory Results E coli RX M.I.C. --- --------- Amox/Clav S <=8/4 Ampicillin S <=8 Amp/Sul S <=8/4 Cefazolin S <=2 Cefepime S <=2 Ceftriaxone S <=1 Ciprofloxacin S <=0.25 Ertapenem S <=0.5 Gentamicin S <=4 Levofloxacin S <=0.5 Meropenem S <=1 Nitrofurantoin S <=32 Tobramycin S <=4 Trimeth/Sulfa S <=2/38 Pip/Tazo S <=16 S = SENSITIVE I = INTERMEDIATE R = RESISTANT Diagnostic Findings IMPRESSION: Findings are compatible with pyelonephritis with possible developing tiny renal abscesses in the right kidney inferior pole. Surrounding fat stranding is seen in pericholecystic fluid is likely reactive. No nonobstructive nephrolithiasis is seen.
[2023-11-24] MEDS: SACCHAROMYCES BOULARDII 250 MG CAP PO SCH (21:16)
[2023-11-24] MEDS: oxyCODONE HCL IR 5 MG TAB (IMMEDIATE RELEASE) PO PRN (21:20)
[2023-11-25] MEDS: IBUPROFEN 600 MG TAB PO PRN (01:07)
[2023-11-25 07:12] LABS: BUN Creatinine Ratio 8.8 (10-20); Calcium 7.9 mg/dl (8.6-10.3); Creatinine Clr Calc Pharmacy 123.2 ml/min; Est GFR (African American) 143.2 ml/min; Est GFR (Non-African American) 123.5 ml/min; Potassium 3.8 mmol/L (3.5-5.1)
--- NOTE | 2023-11-25 11:35 | Electrocardiogram Report ---
Test Reason : Blood Pressure : / mmHG Vent. Rate : 063 BPM Atrial Rate : 063 BPM P-R Int : 122 ms QRS Dur : 086 ms QT Int : 396 ms P-R-T Axes : 039 019 -04 degrees QTc Int : 405 ms Normal sinus rhythm with sinus arrhythmia Otherwise Normal ECG No previous ECGs available Confirmed by Sandor Munroe ([id number]) on 11/25/2023 11:35:24 AM Referred By: REFERRED SELF Confirmed By:Sandor Munroe
[2023-11-25] MEDS ORDERED: CIPROFLOXACIN / D5W 400 MG/200 ML BAG IV SCH (16:00)
--- NOTE | 2023-11-25 16:47 | Hospitalist Progress Note ---
Date of Service November 25, 2023 Assessment & Plan (1) Pyelonephritis: Plan: presented with fever of 102 C with back pain headache nausea and pyuria positive blood culture even prior to admission started on intravenous ceftriaxone for both to cover E. coli bacteremia and possible Lyme disease Patient still moderately ill with significant flank pain. C. difficile is negative, trial of Imodium and probiotic for her antibiotic associated diarrhea Added ibuprofen as needed for her flank pain in addition to Tylenol and tramadol appreciate urology input and recommendation appreciate ID input and recommendation to continue with Cipro for a total of 2 to 3 weeks EKG has been done and does not show any QT prolongation (2) Renal abscess, right: Plan: pyelonephritis with renal abscess appreciate urology input and recommendation will have repeat scan in about 2 to 3 weeks following (3) Bacteremia: Plan: finishing the course of antibiotic (4) Lyme disease: Plan: positive IgM definitive Western blot is pending will start doxycycline from today (5) Electrolyte abnormality: (6) Antibiotic-associated diarrhea: Plan: C. difficile has been negative Admission and Anticipated Discharge Date Admission Date: November 23, 2023 Subjective 11/25/2023 the patient was seen and examined in medical floor in presence of the mother she has been complaining up back pain on either side of the lower back otherwise feeling a little better denies any fever and or chills Review of Systems Review of Systems: all systems reviewed and are unremarkable except as noted below Physical Exam Physical Exam: lying in bed with some discomfort at the back Constitutional: + ill appearing and average body habitus Eyes: PERRL, conjunctivae normal, anicteric sclerae ENMT: external ear and nose normal, oropharynx normal Neck: trachea midline, no thyromegaly Respiratory: no respiratory distress Auscultation: lungs clear to auscultation bilaterally Cardiovascular: Rate/Rhythm: regular rate and regular rhythm; not tachycardic Heart Sounds: normal S1 and normal S2; no murmur Extremities: no edema Gastrointestinal (Abdomen): Inspection/Auscultation: normal bowel sounds; abdomen not distended Percussion/Palpation: abdomen soft; abdomen nontender Musculoskeletal: no acute arthritis involving any of the joints Neurologic: normal touch/pain/proprioception and moves all extremities; no focal motor deficits Psychiatric: A+Ox3, euthymic affect Lymphatic: no cervical or axillary lymphadenopathy Results & Data Results & Data Vital Signs (Past 12 Hours) Vital Signs Temp Pulse Pulse Resp BP Pulse Ox O2 Del Method 11/25/23 14:43 36.6 C 65 14 111/72 92 Room Air 11/25/23 11:30 36.7 C 83 17 100/68 92 Room Air 11/25/23 07:40 36.6 C 75 18 108/66 93 Room Air Laboratory Results [facility] 11/25/23 05:40 Sodium 138 Potassium 3.8 Chloride 109 H Carbon Dioxide 23 BUN 5 L Creatinine 0.57 L Glucose 85 Calcium 7.9 L Medications Administered Current Inpatient Medications Acetaminophen (Acetaminophen 325 Mg Tab) 650 mg PO Q6H PRN PRN Reason: Pain & Pre PT Stop: 12/23/23 19:59 Last Admin: 11/24/23 12:48 Dose: 650 mg Enoxaparin Sodium (Enoxaparin Inj 40 Mg/0.4 Ml Syr) 40 mg SQ Q24H [facility] Stop: 12/23/23 20:59 Last Admin: 11/24/23 21:16 Dose: 40 mg Sodium Chloride (Nss) 1,000 mls @ 125 mls/hr IV .Q8H [facility] Stop: 12/23/23 17:07 Last Admin: 11/25/23 15:01 Dose: 125 mls/hr Promethazine HCl 12.5 mg/ (Sodium Chloride) 50.5 mls @ 204 mls/hr IV Q6H PRN PRN Reason: Nausea And Vomiting Stop: 12/23/23 17:07 Last Infusion: 11/25/23 08:50 Dose: Infused Ciprofloxacin (Cipro / D5w) 400 mg in 200 mls @ 100 mls/hr IV Q8H [facility] Stop: 12/09/23 17:59 Ibuprofen (Ibuprofen 600 Mg Tab) 600 mg PO Q6H PRN PRN Reason: Mild-Mod Pain (Scale 1-6) Stop: 12/24/23 13:14 Last Admin: 11/25/23 15:00 Dose: 600 mg Loperamide HCl (Loperamide Hcl 2 Mg Cap) 2 mg PO Q6H PRN PRN Reason: Diarrhea Stop: 12/24/23 13:13 Last Admin: 11/24/23 13:26 Dose: 2 mg Oxycodone HCl (Oxycodone Hcl Ir 5 Mg Tab (Immediate Release)) 5 mg PO Q4H PRN PRN Reason: Severe Pain (Scale 7, 8, 9,10) Stop: 12/07/23 17:07 Last Admin: 11/24/23 21:20 Dose: 5 mg Saccharomyces Boulardii (Saccharomyces Boulardii 250 Mg Cap) 250 mg PO BID [facility] Stop: 12/24/23 20:59 Last Admin: 11/25/23 09:56 Dose: 250 mg Tramadol HCl (Tramadol Hcl 50 Mg Tablet) 50 mg PO Q4H PRN PRN Reason: MODERATE Pain (4,5,6) & Pre PT Stop: 12/23/23 17:07 Last Admin: 11/24/23 17:53 Dose: 50 mg
[2023-11-25] MEDS: CIPROFLOXACIN / D5W 400 MG/200 ML BAG IV SCH (17:07)
[2023-11-25] MEDS: DOXYCYCLINE HYCLATE 100 MG CAP PO SCH (20:02)
[2023-11-25 23:27] LABS: 18KDIGG Band NON-REACTIVE; 23KDIGG Band NON-REACTIVE; 23KDIGM Band REACTIVE; 28KDIGG Band NON-REACTIVE; 30KDIGG Band NON-REACTIVE; 39KDIGG Band NON-REACTIVE; 39KDIGM Band NON-REACTIVE; 41KDIGG Band REACTIVE; 41KDIGM Band NON-REACTIVE; 45KDIGG Band NON-REACTIVE; 58KDIGG Band NON-REACTIVE; 66KDIGG Band NON-REACTIVE; 93KDIGG Band NON-REACTIVE; Lyme Antibodies, WB IgG NEGATIVE (NEGATIVE); Lyme Antibodies, WB IgM NEGATIVE (NEGATIVE)
[2023-11-26 06:38] LABS: Basophils # (auto) 0.02 K/uL (0.00-0.20); Basophils % (auto) 0.5 %; Eosinophils # (auto) 0.07 K/uL (0.00-0.50); Eosinophils % (auto) 1.8 %; Hematocrit (blood only) 32.8 % (37.0-47.0); Hemoglobin 10.8 g/dl (12.0-16.0); Immature Granulocytes # (auto) 0.04 K/uL (0.01-0.20); Lymphocytes # (auto) 1.13 K/uL (1.20-3.40); Lymphocytes % (auto) 29.4 %; Mean Corpuscular Hgb Conc 32.9 g/dL (32.0-36.0); Mean Platelet Volume 11.1 fL (9.4-12.4); Monocytes # (auto) 0.51 K/uL (0.11-0.59); Monocytes % (auto) 13.3 %; Neutrophils # (auto) 2.07 K/uL (1.40-6.50); Platelet Count 241 K/uL (130-400); RDW Coefficient of Variation 13.6 % (11.5-14.5); RDW Standard Deviation 42.2 fL (36.4-46.3); Red Blood Count 3.86 M/uL (4.20-5.40); White Blood Count 3.84 K/ul (4.8-10.8)
[2023-11-26 07:05] LABS: BUN Creatinine Ratio 9.4 (10-20); Calcium 7.7 mg/dl (8.6-10.3); Creatinine Clr Calc Pharmacy 132.5 ml/min; Est GFR (African American) 146.6 ml/min; Est GFR (Non-African American) 126.5 ml/min; Potassium 3.3 mmol/L (3.5-5.1)
[2023-11-26] MEDS: POTASSIUM CHLORIDE CRTAB 20 MEQ TABCR PO STA (10:22)
[2023-11-26] MEDS: OPTIRAY 320 100ml IV ONE (13:26)
--- NOTE | 2023-11-26 13:39 | Hospitalist Progress Note ---
Date of Service November 26, 2023 Assessment & Plan (1) Pyelonephritis: Plan: presented with fever of 102 C with back pain headache nausea and pyuria positive blood culture even prior to admission started on intravenous ceftriaxone for both to cover E. coli bacteremia and possible Lyme disease Patient still moderately ill with significant flank pain. C. difficile is negative, trial of Imodium and probiotic for her antibiotic associated diarrhea Added ibuprofen as needed for her flank pain in addition to Tylenol and tramadol appreciate urology input and recommendation appreciate ID input and recommendation to continue with Cipro for a total of 2 to 3 weeks EKG has been done and does not show any QT prolongation has been tolerating intravenous Cipro well will have another CAT scan of the abdomen with contrast to evaluate pyelonephritis/renal abscess prior to discharge home this afternoon (2) Renal abscess, right: Plan: pyelonephritis with renal abscess appreciate urology input and recommendation will have repeat scan in about 2 to 3 weeks following (3) Bacteremia: Plan: finishing the course of antibiotic (4) Lyme disease: Plan: positive IgM definitive Western blot is pending will start doxycycline from today no direct evidence of tick bite but Lyme has been positive will finish the 10 days course of antibiotic (5) Electrolyte abnormality: (6) Antibiotic-associated diarrhea: Plan: C. difficile has been negative Admission and Anticipated Discharge Date Admission Date: November 23, 2023 Subjective 11/25/2023 the patient was seen and examined in medical floor in presence of the mother she has been complaining up back pain on either side of the lower back otherwise feeling a little better denies any fever and or chills 11/26/2023 The patient was seen and examined in medical floor She has been feeling a lot better and complains to have some nausea following oral doxycycline denies any back pain and does not have any fever and or chills Review of Systems Review of Systems: all systems reviewed and are unremarkable except as noted below Physical Exam Physical Exam: lying in bed with some discomfort at the back Constitutional: average body habitus; not ill appearing Eyes: PERRL, conjunctivae normal, anicteric sclerae ENMT: external ear and nose normal, oropharynx normal Neck: trachea midline, no thyromegaly Respiratory: no respiratory distress Auscultation: lungs clear to auscultation bilaterally Cardiovascular: Rate/Rhythm: regular rate and regular rhythm; not tachycardic Heart Sounds: normal S1 and normal S2; no murmur Extremities: no edema Gastrointestinal (Abdomen): Inspection/Auscultation: normal bowel sounds; abdomen not distended Percussion/Palpation: abdomen soft; abdomen nontender no tenderness in the renal angles Neurologic: normal touch/pain/proprioception and moves all extremities; no focal motor deficits Psychiatric: A+Ox3, euthymic affect Lymphatic: no cervical or axillary lymphadenopathy Results & Data Results & Data Vital Signs (Past 12 Hours) Vital Signs Temp Pulse Resp BP Pulse Ox O2 Del Method 11/26/23 07:44 37.1 C 62 16 109/72 96 Room Air Laboratory Results Short CBC 11/26/23 Range/Units 05:48 WBC 3.84 L (4.8-10.8) K/ul Hgb 10.8 L (12.0-16.0) g/dl Hct 32.8 L (37.0-47.0) % Plt Count 241 (130-400) K/uL BMP 11/26/23 05:48 Sodium 140 Potassium 3.3 L Chloride 111 H Carbon Dioxide 24 BUN 5 L Creatinine 0.53 L Glucose 98 Calcium 7.7 L Medications Administered Current Inpatient Medications Acetaminophen (Acetaminophen 325 Mg Tab) 650 mg PO Q6H PRN PRN Reason: Pain & Pre PT Stop: 12/23/23 19:59 Last Admin: 11/24/23 12:48 Dose: 650 mg Doxycycline Hyclate (Doxycycline Hyclate 100 Mg Cap) 100 mg PO BID [facility] Stop: 12/05/23 20:59 Last Admin: 11/26/23 07:54 Dose: 100 mg Enoxaparin Sodium (Enoxaparin Inj 40 Mg/0.4 Ml Syr) 40 mg SQ Q24H [facility] Stop: 12/23/23 20:59 Last Admin: 11/25/23 20:03 Dose: Not Given Sodium Chloride (Nss) 1,000 mls @ 125 mls/hr IV .Q8H [facility] Stop: 12/23/23 17:07 Last Admin: 11/26/23 09:50 Dose: 125 mls/hr Promethazine HCl 12.5 mg/ (Sodium Chloride) 50.5 mls @ 204 mls/hr IV Q6H PRN PRN Reason: Nausea And Vomiting Stop: 12/23/23 17:07 Last Infusion: 11/26/23 11:04 Dose: Infused Ciprofloxacin (Cipro / D5w) 400 mg in 200 mls @ 100 mls/hr IV Q8H [facility] Stop: 12/09/23 17:59 Last Infusion: 11/26/23 11:58 Dose: Infused Ibuprofen (Ibuprofen 600 Mg Tab) 600 mg PO Q6H PRN PRN Reason: Mild-Mod Pain (Scale 1-6) Stop: 12/24/23 13:14 Last Admin: 11/26/23 09:37 Dose: 600 mg Loperamide HCl (Loperamide Hcl 2 Mg Cap) 2 mg PO Q6H PRN PRN Reason: Diarrhea Stop: 12/24/23 13:13 Last Admin: 11/24/23 13:26 Dose: 2 mg Oxycodone HCl (Oxycodone Hcl Ir 5 Mg Tab (Immediate Release)) 5 mg PO Q4H PRN PRN Reason: Severe Pain (Scale 7, 8, 9,10) Stop: 12/07/23 17:07 Last Admin: 11/24/23 21:20 Dose: 5 mg Saccharomyces Boulardii (Saccharomyces Boulardii 250 Mg Cap) 250 mg PO BID [facility] Stop: 12/24/23 20:59 Last Admin: 11/26/23 07:54 Dose: 250 mg Tramadol HCl (Tramadol Hcl 50 Mg Tablet) 50 mg PO Q4H PRN PRN Reason: MODERATE Pain (4,5,6) & Pre PT Stop: 12/23/23 17:07 Last Admin: 11/24/23 17:53 Dose: 50 mg
--- NOTE | 2023-11-26 14:16 | CT Scan Report ---
CT SCAN OF THE ABDOMEN AND PELVIS WITH IV CONTRAST CLINICAL HISTORY: Pyelonephritis. Assess for abscess. COMPARISON STUDY: Abdominal CT dated 11/23/2023. TECHNIQUE: Following the IV administration of 94 cc of Optiray 320, CT scan of the abdomen and pelvi s is performed from the lung bases to the proximal femora. Images are reviewed in the axial, sagittal , and coronal planes. IV contrast was administered without complication. A dose lowering technique wa s utilized adhering to the principles of ALARA. CT DOSE: 710.43 mGy.cm FINDINGS: Lung bases: The heart is normal in size and without pericardial effusion. There are [id number] pleural effusions with dependent atelectasis. These have increased in size from 11/23/2023. Liver: The contrast-enhanced liver is normal in size, contour, and attenuation. There is no intrahepa tic biliary ductal dilatation. The hepatic veins and portal veins are patent. Gallbladder: Unremarkable. Spleen: Normal in size and attenuation. Pancreas: Unremarkable. Adrenal glands: Unremarkable. Kidneys: The contrast enhanced kidneys are normal in size and without hydronephrosis. Urothelial thic kening and enhancement is seen in the renal pelvis bilaterally and both ureters, greater on the right . There is associated perinephric and periureteric infiltration. There is heterogeneous enhancement o f both kidneys consistent with bilateral pyelonephritis. Again, this is greater on the right. There i s a 1.7 cm focus of phlegmonous change in the lower pole of the left kidney on image #168. No organiz ed/drainable abscess is seen at this time. A 2 mm nonobstructing calculus is seen on the right. Abdominal vasculature: The abdominal aorta is normal in course and caliber. Bowel: There is no bowel obstruction. The appendix is not visualized. Peritoneum: There is trace perihepatic ascites, as well as a small volume of pelvic ascites. No intra peritoneal free air is seen. Lymphadenopathy: None. Pelvic viscera: The bladder, uterus, and adnexa are normal as visualized noting bilateral ovarian fol licles. Skeletal structures: No lytic or blastic lesions are seen. IMPRESSION: 1. Again seen are findings of bilateral pyelonephritis, right greater than left. 2. There is a 1.7 cm focus of phlegmonous change in the lower pole of the right kidney. No organized/ drainable abscess is seen at this time. 3. Right-sided nephrolithiasis. 4. [id number] pleural effusions with dependent atelectasis. These have increased in size from 11/23/2023. 5. Small volume of abdominopelvic ascites. 6. Additional findings as above. ACT 112: Negative or not required by law. Electronically signed by: Sloan Hodgson M.D. 11/26/2023 2:15 PM
[2023-11-26] MEDS: CIPROFLOXACIN 250 MG TAB PO SCH (15:37)
--- NOTE | 2023-11-27 15:33 | Discharge Summary ---
Date of Service November 27, 2023 Admission HPI Per Admitting Provider 33-year-old female with history of GERD, irritable bowel syndrome, migraine, presenting with positive blood cultures. Patient reports having the following symptoms over the weekend: Fever of 102/chills, back pain, headache, nausea, polyuria, muscle aches. She presented to the ER yesterday and was diagnosed to have possible pyelonephritis and Lyme disease. She was discharged on p.o. cefdinir and p.o. doxycycline. Patient was called back to the ER today as her urine culture and blood cultures is positive for gram-negative bacilli, preliminary serologic testing reveals E. coli, no resistant genes. At the ER, patient received afebrile, slightly tachycardic at low 100s, WBC improved from 13, current 8.9. She was started IV ceftriaxone 2 g at the ED. On exam, patient seen resting in bed, sleeping but easily awakened. States she is having severe frontal headache reminiscent of her migraine attacks. Still having some back pain, dysuria, no hematuria. No other symptoms Admission Exam Per Admitting Provider Physical Exam: General- oriented x 3, not in distress, speaks in sentences with no effort or accessory muscle use Head- atraumatic Eyes- PERRL, EOMI, anicteric ENT- oropharynx clear Neck- supple, no JVD, no adenopathy, no thyromegaly; carotids +2/2, no bruits appreciated Lungs- clear to auscultation bilaterally, no rales/wheezes Heart- normal rate, regular rhythm; no murmur, no gallop, no rub appreciated Abdomen- normal bowel sounds, nondistended, soft, nontender, no masses or hepat osplenomegaly Positive mild CVA tenderness Extremities- no pretibial edema, no calf tenderness; peripheral pulses intact Neuro- alert, oriented x 3; CN 2-12 grossly intact; motor 5/5 bilaterally;sen sation 100% on all extremities; no other gross focal neurologic deficits Skin- warm & dry Principal Diagnosis Acute pyelonephritis, Lyme disease Discharge Exam lying in bed with some discomfort at the back Constitutional average body habitus; not ill appearing Eyes PERRL, conjunctivae normal, anicteric sclerae ENMT external ear and nose normal, oropharynx normal Neck trachea midline, no thyromegaly Respiratory no respiratory distress Auscultation: lungs clear to auscultation bilaterally Cardiovascular Rate/Rhythm: regular rate and regular rhythm; not tachycardic Heart Sounds: normal S1 and normal S2; no murmur Extremities: no edema Gastrointestinal (Abdomen) Inspection/Auscultation: normal bowel sounds; abdomen not distended Percussion/Palpation: abdomen soft; abdomen nontender Neurologic normal touch/pain/proprioception and moves all extremities; no focal motor deficits Psychiatric A+Ox3, euthymic affect Lymphatic no cervical or axillary lymphadenopathy Discharge Data Allergies Allergy/AdvReac Type Severity Reaction Status Date / Time hydrocodone [From Vicodin] AdvReac Intermediate Vomiting Verified 11/23/23 13:18 Consultations 11/23/23 12:39 ED Decision to Admit Stat 11/23/23 21:44 Consult Infectious Diseases Routine Consult Urology Routine Ordered Studies 11/23/23 12:56 CT Abd and Pelvis [CT abd pelvis IV con only] Routine 11/26/23 12:19 CT Abd and Pelvis [CT abd pelvis IV con only] Urgent Hospital Course (1) Pyelonephritis: presented with fever of 102 C with back pain headache nausea and pyuria positive blood culture even prior to admission started on intravenous ceftriaxone for both to cover E. coli bacteremia and possible Lyme disease Patient still moderately ill with significant flank pain. C. difficile is negative, trial of Imodium and probiotic for her antibiotic associated diarrhea Added ibuprofen as needed for her flank pain in addition to Tylenol and tramadol appreciate urology input and recommendation appreciate ID input and recommendation to continue with Cipro for a total of 2 to 3 weeks EKG has been done and does not show any QT prolongation has been tolerating intravenous Cipro well will have another CAT scan of the abdomen with contrast to evaluate pyelonephr itis/renal abscess prior to discharge home this afternoon (2) Renal abscess, right: pyelonephritis with renal abscess appreciate urology input and recommendation will have repeat scan in about 2 to 3 weeks following (3) Bacteremia: finishing the course of antibiotic (4) Lyme disease: positive IgM definitive Western blot is pending will start doxycycline from today no direct evidence of tick bite but Lyme has been positive will finish the 10 days course of antibiotic (5) Electrolyte abnormality: (6) Antibiotic-associated diarrhea: C. difficile has been negative Total Time Total Time Spent Total Time Spent (In Minutes): 35 minutes Discharge Plan Discharge Items Patient Disposition: Home - Self-Care Reason For Visit: ACUTE PYELONEPHRITIS, BACTEREMIA Discharge Diagnosis: acute pyelonephritis, Lyme disease Condition on Discharge: Fair Activity: Resume your previous activity Non-emergency contact: Primary Care Provider Call non-emergency contact if: you have any medication questions and your symptoms worsen Follow-up/Referrals: Santiago Witt MD [Primary Care Provider] - 12/03/23 10:45 am Diet: Regular Addtl Attending Provider Instructions: please finish the course of antibiotic as advised you will need to have a repeat CT of the abdomen and pelvis to evaluate a pyelonephritis following the antibiotic course try to drink more fluid Pending Studies at Discharge: No Stand-Alone Forms: [facility] [facility], Pain - Opioid Pain Management, Smoking Cessation Medications and DC Order Prescriptions: New doxycycline hyclate 100 mg Capsule 100 mg PO BID Qty: 14 0RF Saccharomyces boulardii [Florastor] 250 mg Capsule 250 mg PO BID Qty: 30 0RF ciprofloxacin HCl 750 mg tablet 750 mg PO BID Qty: 36 0RF ondansetron 4 mg tablet,disintegrating 4 mg PO Q8H PRN (Reason: nausea and vomiting) 3 Days Qty: 10 0RF Continued Nexplanon 68 mg Implant 68 mg SUBDERMAL DIRECTED oxycodone 5 mg tablet 5 mg PO Q4H PRN (Reason: pain) Qty: 15 0RF Rx Instructions: Pt states she only took once dose on 11/22/23 Discontinued cefdinir 300 mg capsule 300 mg PO BID 10 Days Qty: 20 0RF Rx Instructions: Start Date 11/23/23, pt unsure of day supply but only took once dose on 11/22/23 doxycycline hyclate 100 mg capsule 0 mg PO BID Rx Instructions: As of 11/23/23 pt hasn't started medication yet. Original Directions: 100mg by mouth twice daily Discharge Orders: Discharge Order (Routine); Ordered 11/26/23 Ordered By: Katarzyna Bajwa/Other Patient Handouts: Kidney (Renal) Abscess Admission Data Admit Date/Time: 11/23/23 12:56 Attending Provider: Katarzyna Pagan Admit Provider: Elias Maier Primary Care Provider: Santiago Witt Other Providers: Elias Maier; Nathaniel Momin; Marie Vargas; Yang Byers I.; Gregory Duffy II; Candis Goodrich; Keith Camarena; Wero Durham; Pam Wilkins; Jesus Manuel Tian; Everardo Neal; Stefano Silva; Kamila Richey; Gallo Kemp; Araceli Frances; Raiza Ross; Boogie Tirado; Sarika Bates; Mason Sousa; Marcello Li; Refugio Jorgensen; Josué Camarena Other Interventions: Discharge Summary Assessment (RN) Last Done: 11/26/23 16:48
== END 2023-11-26 18:00 | disposition home or self-care (01) | DRG 871 ==
LOC: ED 11:04 → 3N 12:56 → SUATTDRO 12:56 → 3N 17:53